=== PATIENT | male | born 1985 | race Caucasian/White ===

== ENCOUNTER 2017-04-08 10:01 | Emergency (ER) | payer SELFPAY ==
[~2017-04-08] VITALS: Ht 167.6 cm; Wt 72.6 kg
[2017-04-08] MEDS ORDERED: TDAP [DIPH/PERTUSSIS/TET] 0.5 ML VIAL IM ONE ×2 (10:19→10:30)
--- NOTE | 2017-04-08 10:32 | NUR ---
PT. VERBALIZED UNDERSTANDING OF AFTERCARE INSTRUCTIONS.Patient discharged to custody of [employer] in stable condition. Written and verbal after care instructions given. Patient verbalizes understanding of instruction.
[2017-04-08 10:39] VITALS: BP 135/94
== END 2017-04-08 10:40 ==
LOC: ER 10:04
DX: S30.851A Superficial foreign body of abdominal wall, initial encounter (principal); S20.352A Superficial foreign body of left front wall of thorax, initial encounter; Z59.0 Homelessness; Y35.091A Legal intervention involving other firearm discharge, law enforcement official injured, initial encounter; Y93.89 Activity, other specified; Y92.89 Other specified places as the place of occurrence of the external cause; Y99.8 Other external cause status
CPT/HCPCS: 90471; 90715; 93005; 99284; A4606; Z7610